=== PATIENT | female | born 1985 | race Caucasian/White ===

== ENCOUNTER 2019-07-25 16:58 | Emergency (ER) | payer OTHER, MEDICAID ==
[~2019-07-25] VITALS: Ht 172.7 cm; Wt 59.0 kg
--- NOTE | 2019-07-25 16:58 | NUR ---
ED Nurse Note: patient brought into ED by [facility] due to overdose, patient admits to cocaine and marijuana use. patient denies any SI/HI. patient is alert awake breathing unlabored and even. patient placed on a hospital gown and patient placed on a cardiac rehabilitation program director.
[2019-07-25] MEDS ORDERED: LORazepam Inj 2mg/ml 1ml IV ONE (17:15)
[2019-07-25] MEDS ORDERED: ABILIFY20 MG ORAL (17:16)
[2019-07-25] MEDS ORDERED: TOPIRAMATE100 MG ORAL (17:16)
--- NOTE | 2019-07-25 17:16 | Emergency Room Report ---
History of Present Illness General Chief Complaint: Overdose Source: Patient Present Illness HPI Disclaimer: Please note that this report is being documented using [employer] technology. This can lead to erroneous entry secondary to incorrect interpretation by the dictating instrument. HPI: 34-year-old female history of substance abuse and depression presents for evaluation of abnormal mental status. Patient brought in by ambulance after she was found walking around outside behaving bizarrely. She admitting to using cocaine approximately 1 hour prior to arrival as well as smoking an unknown substance a little bit before that. She denies headache, chest pain, palpitations, nausea, vomiting, diarrhea. She is answering questions appropriately though sometimes has difficulty concentrating. Denies suicidality or homicidality. States she was using these drugs recreationally. She is living at a sober living facility for cocaine abuse at this time. Denies any alcohol use today. PMH: Anxiety, depression, substance abuse PSH: Denies Allergies: Denies Social Hx: Cocaine abuse, marijuana use Allergies: Coded Allergies: No Known Allergies (Unverified , 07/25/19) COVID-19 Screening Contact w/high risk pt: No Recent Travel to affected area: No Experienced COVID-19 symptoms?: No Patient History Last Menstrual Period: 07/23/19 Now: No Nursing Documentation-PMH Past Medical History: No History, Except For Review of Systems All Other Systems: negative except mentioned in HPI Physical Exam Vital Signs Date Time Temp Pulse Resp B/P (MAP) Pulse Ox O2 Delivery O2 Flow Rate FiO2 07/25/19 16:53 99.0 135 16 134/75 (94) 99 Room Air General: Awake and alert, no acute distress HEENT: NC/AT. EOMI. pupils are 7 mm. No nystagmus. Dry mucous membranes. Cardiovascular: Tachycardic. S1 and S2 normal. No murmur appreciated Resp: Normal work of breathing. No cough, wheezing or crackles appreciated Skin: Intact. No abrasions, laceration or rash over the exposed skin MSK: Normal tone and bulk. Moving all extremities. No obvious deformity. No rigidity. No clonus. Neuro: Awake and alert. Answering questions appropriately. Intermittently inattentive though redirectable. Denies SI/HI. Medical Decision Making Diagnostic Impression: Primary Impression: Drug abuse ER Course 34-year-old female presents for evaluation of altered mental status with recent substance use. Differential includes but is not limited to cocaine abuse, intoxication, tachyarrhythmia, medication side effect, unknown drug ingestion, serotonin syndrome, NMS. Patient's history and physical exam most consistent with a sympathomimetic syndrome, likely from the recent cocaine use. Unknown what other substance she may have smoked prior to arrival though she believes it may have been marijuana she is not sure of this. Patient does not take any SSRIs. No rigidity or clonus. Will start IV hydration, benzodiazepines for agitation, draw labs to evaluate for electrolyte abnormalities, dehydration, tox screen. Laboratory Tests Test 07/25/19 17:20 White Blood Count 19.4 K/UL (4.8-10.8) H Red Blood Count 4.51 M/UL (4.20-5.40) Hemoglobin 14.5 G/DL (12.0-16.0) Hematocrit 44.6 % (37.0-47.0) Mean Corpuscular Volume 99 FL (80-99) Mean Corpuscular Hemoglobin 32.1 PG (27.0-31.0) H Mean Corpuscular Hemoglobin Concent 32.4 G/DL (32.0-36.0) Red Cell Distribution Width 12.5 % (11.6-14.8) Platelet Count 320 K/UL (150-450) Mean Platelet Volume 6.6 FL (6.5-10.1) Neutrophils (%) (Auto) % (45.0-75.0) Lymphocytes (%) (Auto) % (20.0-45.0) Monocytes (%) (Auto) % (1.0-10.0) Eosinophils (%) (Auto) % (0.0-3.0) Basophils (%) (Auto) % (0.0-2.0) Differential Total Cells Counted 100 Neutrophils % (Manual) 86 % (45-75) H Lymphocytes % (Manual) 8 % (20-45) L Monocytes % (Manual) 5 % (1-10) Eosinophils % (Manual) 0 % (0-3) Basophils % (Manual) 1 % (0-2) Band Neutrophils 0 % (0-8) Platelet Estimate Adequate Platelet Morphology Normal Red Blood Cell Morphology Normal Sodium Level 146 MMOL/L (136-145) H Potassium Level 3.9 MMOL/L (3.5-5.1) Chloride Level 107 MMOL/L (98-107) Carbon Dioxide Level 24 MMOL/L (21-32) Anion Gap 15 mmol/L (5-15) Blood Urea Nitrogen 19 mg/dL (7-18) H Creatinine 1.4 MG/DL (0.55-1.30) H Estimated Glomerular Filtration Rate 42.8 mL/min (>60) Glucose Level 126 MG/DL (74-106) H Calcium Level 10.4 MG/DL (8.5-10.1) H Total Bilirubin 1.3 MG/DL (0.2-1.0) H Direct Bilirubin 0.3 MG/DL (0.0-0.3) Aspartate Amino Transferase (AST) 34 U/L (15-37) Alanine Aminotransferase (ALT) 43 U/L (12-78) Alkaline Phosphatase 71 U/L (46-116) Total Protein 8.2 G/DL (6.4-8.2) Albumin 4.7 G/DL (3.4-5.0) Globulin 3.5 g/dL Albumin/Globulin Ratio 1.3 (1.0-2.7) Salicylates Level < 0.2 ug/mL (2.8-20) L Acetaminophen Level < 2 MCG/ML (10-30) L Serum Alcohol < 3 mg/dL EKG Diagnostic Results EKG Time: 17:26 Rate: tachycardiac ST Segments: no acute changes Other Impression Sinus tachycardia, normal axis, normal intervals, no ST segment changes. Rhythm Strip Diag. Results Rhythm Strip Time: 17:26 EP Interpretation: yes Rate: 120s Rhythm: no PVC's, no ectopy Reevaluation Time: 20:34 Last Vital Signs Date Time Temp Pulse Resp B/P (MAP) Pulse Ox O2 Delivery O2 Flow Rate FiO2 07/25/19 16:53 99.0 135 16 134/75 (94) 99 Room Air Reevaluation Impression Labs show leukocytosis with a white cell count of 19.4 with a neutrophil predominance. Afebrile no source of infection identified. May be a stress reaction to the stimulants she has been abusing. Chemistry shows a slight elevation in BUN/creatinine likely dehydration. She has received IV fluids. Salicylate, acetaminophen and alcohol are negative. Patient is refusing to give urine for urinalysis, hCG or tox screen. Heart rate is been improving after receiving benzodiazepines IV fluids. Suspect this related to her use of cocaine and another unknown substance earlier today which she admits to. She is requesting to leave from the emergency department. Vital signs are improving and she is clinically sober. Discharged to her sober living facility and included other resources for her to follow-up for drug abuse. Discussed reasons to return to the emergency department. She understands and agrees with treatment plan. Disposition: HOME, SELF-CARE Condition: Stable Ketan Padilla MD July 25, 2019 17:16
--- NOTE | 2019-07-25 17:44 | NUR ---
ED Nurse Note: patient unable to void right now. patient provided with bedpan. patient refused to get straight cath.
[2019-07-25 18:01] VITALS: BP 109/85
[2019-07-25 18:02] LABS: HEMATOCRIT 44.6 % (37.0-47.0); HEMOGLOBIN 14.5 G/DL (12.0-16.0); MEAN CORPUSCULAR VOLUME 99 FL (80-99); PLATELET COUNT 320 K/UL (150-450); RED BLOOD COUNT 4.51 M/UL (4.20-5.40); RED CELL DISTRIBUTION WIDTH 12.5 % (11.6-14.8); WHITE BLOOD COUNT 19.4 K/UL (4.8-10.8)
[2019-07-25 18:03] LABS: ANION GAP 15 mmol/L (5-15); BLOOD UREA NITROGEN 19 mg/dL (7-18); CALCIUM 10.4 MG/DL (8.5-10.1); CARBON DIOXIDE 24 MMOL/L (21-32); CHLORIDE 107 MMOL/L (98-107); CREATININE 1.4 MG/DL (0.55-1.30); POTASSIUM 3.9 MMOL/L (3.5-5.1); SODIUM 146 MMOL/L (136-145)
[2019-07-25 18:13] LABS: ALANINE AMINOTRANSFERASE 43 U/L (12-78); ALBUMIN 4.7 G/DL (3.4-5.0); ALBUMIN/GLOBULIN RATIO 1.3 (1.0-2.7); ALKALINE PHOSPHATASE 71 U/L (46-116); ASPARTATE AMINO TRANSFERASE 34 U/L (15-37); BILIRUBIN,TOTAL 1.3 MG/DL (0.2-1.0)
[2019-07-25 18:14] LABS: BILIRUBIN,DIRECT 0.3 MG/DL (0.0-0.3)
--- NOTE | 2019-07-25 19:09 | NUR ---
HAND-OFF: Report given to Viki ZAFAR.
[2019-07-25 19:10] VITALS: BP 110/90
--- NOTE | 2019-07-25 19:10 | NUR ---
ED Nurse Note: Report received from IZABELA Ross. Pt is unable to provide urine sample at this time. ERIKA.
--- NOTE | 2019-07-25 19:45 | NUR ---
ED Nurse Note: Pt is still unable to provide urine, ERMD aware. Pt is asking to leave ED.
[2019-07-25 20:35] VITALS: BP 112/68
--- NOTE | 2019-07-25 20:35 | NUR ---
ER DISCHARGE NOTE: Patient is cleared to be discharged per ERMD, pt is aox4, on room air, with stable vital signs. pt was given dc instructions, pt was able to verbalize understanding, pt id band and iv site removed without complications. pt is able to ambulate with steady gait. pt took all belongings.
[2019-07-26] MEDS ORDERED: TOPAMAX100 MG ORAL (04:30)
[2019-07-26] MEDS ORDERED: ABILIFY15 MG ORAL (04:30)
== END 2019-07-25 20:35 | disposition home or self-care (01) ==
LOC: EDBD 16:58 → EMR 19:35
DX: F14.10 Cocaine abuse, uncomplicated (principal); F41.9 Anxiety disorder, unspecified; F32.9 Major depressive disorder, single episode, unspecified; R00.0 Tachycardia, unspecified
CPT/HCPCS: 80053; 82248; 85007; 85025; 96361; 96374; 99284; G0480

== ENCOUNTER 2019-07-26 00:47 | Emergency (ER) | payer OTHER, MEDICAID ==
[~2019-07-26] VITALS: Ht 162.6 cm; Wt 59.0 kg
[~2019-07-26 00:47] MED LIST: ABILIFY20 MG ORAL; TOPIRAMATE100 MG ORAL
[2019-07-26 00:55] VITALS: BP 170/86
--- NOTE | 2019-07-26 00:55 | NUR ---
ED Nurse Note: Pt annelise from street co pt dancing in middle of street; ambulance and [employer] called by bystanders. Pt aao x 4 but states that she was "trying to meet up with Kailash Waterman." Pt ambulatory with steady gait. Pt states that she usually takes topiramate and abilify regularly. Pt VSS no ss of distress noted. Pt pleasant and cheerful. ERMD at bedside
[2019-07-26] MEDS ORDERED: LORazepam 1mg tab ORAL ONE (01:00)
--- NOTE | 2019-07-26 01:00 | NUR ---
ED Nurse Note: All medications administered, pt tolerated well no ss of distress noted. no adverse reactions noted.
--- NOTE | 2019-07-26 01:06 | Emergency Room Report ---
History of Present Illness General Chief Complaint: Behavioral Complaint Present Illness HPI Disclaimer: Please note that this report is being documented using [employer] technology. This can lead to erroneous entry secondary to incorrect interpretation by the dictating instrument. HPI: 34-year-old female history of anxiety, depression, presents for bizarre behavior. Apparently patient was dancing in the street and seen by police who called EMS. Brought to the ER. Patient seen in our ER earlier in the night. At that time she admitted to using cocaine and smoking an unknown substance. Patient given IV fluids and Ativan and had laboratory studies were sent at that time. Patient discharged to self-care. She denies any suicidal or homicidal ideation to me. She states she had been living in a sober living facility until yesterday. She takes Topamax and Abilify but has been noncompliant with her medication for the past few days. PMH: Anxiety and depression PSH: Reviewed Social Hx: Smokes cigarettes, drinks occasionally, uses cocaine Allergies: Coded Allergies: No Known Allergies (Unverified , 07/25/19) COVID-19 Screening Contact w/high risk pt: No Recent Travel to affected area: No Experienced COVID-19 symptoms?: No Patient History Last Menstrual Period: n/a Review of Systems All Other Systems: negative except mentioned in HPI Physical Exam Vital Signs Date Time Temp Pulse Resp B/P (MAP) Pulse Ox O2 Delivery O2 Flow Rate FiO2 07/26/19 00:45 98.2 86 18 170/86 (114) 98 Room Air Sp02 EP Interpretation: reviewed, normal General Appearance: well appearing, no apparent distress Head: normocephalic, atraumatic Eyes: bilateral eye PERRL, bilateral eye EOMI ENT: hearing grossly normal, moist mucus membranes Neck: full range of motion, supple Respiratory: lungs clear, normal breath sounds, no rhonchi, no respiratory distress, no retraction, no wheezing Cardiovascular #1: normal peripheral pulses, regular rate, rhythm, no murmur Gastrointestinal: non tender, soft, non-distended, no guarding Neurologic: alert, oriented x3, no focal defects Psychiatric: no suicidal/homicidal ideation, other - Patient mildly anxious appearing. Skin: normal color, warm/dry Medical Decision Making Diagnostic Impression: Primary Impression: Methamphetamine abuse ER Course MDM: Patient presented by EMS due to bizarre behavior. She has a history of anxiety and depression and has been noncompliant with her Abilify for the past days. Also reports using cocaine and other illicit substances today. Differential diagnosis included but not limited to drug-induced psychosis, medication noncompliant, anxiety, polysubstance abuse to name a few Clinical course-patient had no suicidal or homicidal ideation. I did order Abilify in addition to Ativan. Patient was placed on a gurney and will be observed. Urine drug screen was ordered. Labs -urine drug screen positive for amphetamines On reevaluation: Patient alert oriented no acute distress no suicidal or homicidal ideation, stable for discharge Plan-patient discharged to self-care. I did give refills of her home medications. She was instructed to avoid further amphetamine use. Laboratory Tests Test 07/26/19 00:50 Urine Opiates Screen Negative (NEGATIVE) Urine Barbiturates Screen Negative (NEGATIVE) Phencyclidine (PCP) Screen Negative (NEGATIVE) Urine Amphetamines Screen Positive (NEGATIVE) H Urine Benzodiazepines Screen Negative (NEGATIVE) Urine Cocaine Screen Negative (NEGATIVE) Urine Marijuana (THC) Screen Positive (NEGATIVE) H Last Vital Signs Date Time Temp Pulse Resp B/P (MAP) Pulse Ox O2 Delivery O2 Flow Rate FiO2 07/26/19 00:45 98.2 86 18 170/86 (114) 98 Room Air Status: improved Disposition: HOME, SELF-CARE Condition: Improved Scripts Aripiprazole* (ABILIFY*) 15 Mg Tablet 15 MG ORAL DAILY, #30 TAB 0 Refills Prov: Mendez Merrill M.D. 07/26/19 Topiramate (TOPAMAX) 100 Mg Tablet 100 MG ORAL EVERY 12 HOURS, #30 TAB Prov: Mendez Merrill M.D. 07/26/19 Mendez Merrill M.D. July 26, 2019 01:06
--- NOTE | 2019-07-26 01:10 | NUR ---
ED Nurse Note: Pt assisted to bedside commode for urine specimen. Pt compliant. UA obtained and sent to lab. Pt placed back in bed, VSS no ss of distress noted.
--- NOTE | 2019-07-26 02:30 | NUR ---
ED Nurse Note: pt sleeping in bed, no ss of distress noted. Mika continue to monitor.
[2019-07-26 02:45] VITALS: BP 139/82
--- NOTE | 2019-07-26 04:15 | NUR ---
ED Nurse Note: Pt resting in bed, VSS no ss of distress noted.
[2019-07-26] MEDS ORDERED: TOPAMAX100 MG ORAL (04:30)
[2019-07-26] MEDS ORDERED: ABILIFY15 MG ORAL (04:30)
[2019-07-26 04:45] VITALS: BP 136/80
[2019-07-26] MEDS ORDERED: Topiramate 100mg tab ORAL ONE (04:45)
--- NOTE | 2019-07-26 05:15 | NUR ---
ED Nurse Note: Pt awoke stating that she felt rested and feels much better than when she arrived in ED. Pt aao x 4, VSS no ss of distress noted. Pt requested dose of topiramate d/t pt missing previous doses x 2 days. ERMD notified. Awaiting orders.
[2019-07-26] MEDS ORDERED: Topiramate 25mg tab ONE (05:19)
[2019-07-26] MEDS ORDERED: Topiramate 25mg tab ORAL ONE (05:30)
--- NOTE | 2019-07-26 05:30 | NUR ---
ED Nurse Note: All medications administered, pt tolerated well noss of distress noted. Pt requested a sandwich, food provided. pt tolerated well.
[2019-07-26 05:36] VITALS: BP 135/78
--- NOTE | 2019-07-26 05:36 | NUR ---
ER DISCHARGE NOTE: Patient is cleared to be discharged home per ERMD, pt is aox4, 99% on room air, with stable vital signs. pt was given dc and prescription instructions, pt was able to verbalize understanding, pt id band removed. pt is able to ambulate with steady gait. pt took all belongings.
== END 2019-07-26 05:36 | disposition home or self-care (01) ==
LOC: EDBD 00:47 → EMR 00:55
DX: F15.10 Other stimulant abuse, uncomplicated (principal); F41.9 Anxiety disorder, unspecified; F32.9 Major depressive disorder, single episode, unspecified; F17.210 Nicotine dependence, cigarettes, uncomplicated; F14.90 Cocaine use, unspecified, uncomplicated
CPT/HCPCS: 80307; 99283